=== PATIENT | male | born 1995 | race Two or more races ===

== ENCOUNTER 2021-05-13 21:28 | Emergency (ER) | payer MEDICAID ==
[~2021-05-13] VITALS: Ht 165.1 cm; Wt 52.0 kg
[2021-05-13] MEDS ORDERED: ibuprofen tablet 400 MG TABLET PO ONE (22:55)
[2021-05-13] MEDS ORDERED: ACET-1025 PO (23:10)
[2021-05-13] MEDS ORDERED: BENZ-38 PO (23:10)
[2021-05-13] MEDS ORDERED: ALBU8HFA PO (23:10)
[2021-05-13 23:34] VITALS: BP 117/79
== END 2021-05-13 23:54 | disposition home or self-care (01) ==
LOC: ER 21:29 → EDBD 21:29 → ER 23:54
DX: B34.9 Viral infection, unspecified (principal); Z20.822 Contact with and (suspected) exposure to COVID-19; R05.9 Cough, unspecified; Z79.899 Other long term (current) drug therapy
CPT/HCPCS: 71045; 87502; 87503; 87635; 99284; C9803

== ENCOUNTER 2023-02-23 18:04 | Emergency (ER) | payer MEDICAID ==
[~2023-02-23] VITALS: Ht 162.6 cm; Wt 48.4 kg
[2023-02-23] MEDS ORDERED: acetaminophen 325mg tablet PO ONE (19:40)
[2023-02-23] MEDS ORDERED: proCHLORperazine 10 MG/2 ml inj IV ONE (20:25)
[2023-02-23] MEDS ORDERED: normal saline 1000ml 1,000 ML IV ONE (20:25)
[2023-02-23] MEDS ORDERED: SUMAtriptan succ. 6 MG/0.5ml vial SQ ONE (20:25)
[2023-02-23] MEDS ORDERED: ketorolac trometh. 30mg/ml inj. IV ONE (20:25)
[2023-02-23] MEDS ORDERED: metoclopramide 5 mg/ml inj IV ONE (21:35)
[2023-02-23] MEDS ORDERED: haloperidol lactate 5mg/ml inj IM ONE (21:35)
[2023-02-23] MEDS ORDERED: magnesium 2GM in 50ml NS 50 ML IV ONE (21:35)
[2023-02-23 22:37] VITALS: TEMP 98.9
[2023-02-23 23:15] LABS: BASOPHILS % (AUTO) 0.2 % (0-1); EOSINOPHILS % (AUTO) 0.1 % (0-6); HEMATOCRIT 42.7 % (42.0-52.0); HEMOGLOBIN 14.1 g/dl (14.0-17.9); LYMPHOCYTES # (AUTO) 0.8 X10'3 (1.1-4.8); MEAN CORPUSCULAR HEMOGLOBIN 25.7 PG (27.0-31.0); MEAN CORPUSCULAR HGB CONC 33.1 g/dL (33.0-36.5); MEAN CORPUSCULAR VOLUME 77.6 FL (78-98); MONOCYTES # (AUTO) 0.4 X10'3 (0-0.9); MONOCYTES % (AUTO) 3.8 % (2-12); NEUTROPHILS # (AUTO) 8.8 X10'3 (1.8-7.7); NEUTROPHILS % (AUTO) 87.9 % (42-75); PLATELET COUNT 232 X10'3 (140-440); RED BLOOD COUNT 5.51 X10'6 (4.70-6.10); RED CELL DISTRIBUTION WIDTH 13.5 % (11.5-14.5)
[2023-02-23 23:25] LABS: ALANINE AMINOTRANSFERASE 19 U/L (12-78); ALBUMIN 4.1 G/DL (3.4-5.0); ALBUMIN/GLOBULIN RATIO 1.2 (1.1-1.5); ALKALINE PHOSPHATASE 67 IU/L (46-116); ANION GAP 13 (8-16); ASPARTATE AMINO TRANSFERASE 23 U/L (10-37); BILIRUBIN,TOTAL 2.2 MG/DL (0.1-1.0); BLOOD UREA NITROGEN 10 MG/DL (7-18); CALCIUM 8.8 MG/DL (8.5-10.1); CHLORIDE 103 MMOL/L (99-107); CREATININE 0.77 MG/DL (0.60-1.10); GLUCOSE 117 MG/DL (70-104); POTASSIUM 3.9 MMOL/L (3.5-5.1); SODIUM 137 MMOL/L (135-145); TOTAL CARBON DIOXIDE 21.4 MMOL/L (24-32); TOTAL PROTEIN 7.6 G/DL (6.4-8.2); eCRCL 98 ML/MIN; eGFR > 90 ML/MIN
[2023-02-24 00:03] VITALS: BP 117/89; PULSE 70; RESP 16; O2SAT 100
== END 2023-02-24 00:04 | disposition home or self-care (01) ==
LOC: ER 18:06
DX: G43.909 Migraine, unspecified, not intractable, without status migrainosus (principal)
CPT/HCPCS: 36415; 70450; 80053; 84145; 85025; 96361; 96365; 96372; 96375; 99285; J0780; J1630; J1885; J2765; J3030; J3475; J7030

== ENCOUNTER 2023-03-20 15:42 | Emergency (ER) | payer MEDICAID ==
[~2023-03-20] VITALS: Ht 165.1 cm; Wt 50.2 kg
--- NOTE | 2023-03-20 16:10 | NUR ---
PT SEEN HERE 3 WEEKS AGO FOR MIGRAINE. PT STATES " I FEEL LUMB AROUND MY NIPPLE NOW" PT STATES IT IS PAINFUL TO TOUCH.
[2023-03-20 17:09] VITALS: BP 112/78; PULSE 85; RESP 18; TEMP 98.3; O2SAT 100
--- NOTE | 2023-03-20 18:59 | NUR ---
I AGREE WITH THE ASSESSMENT PER Lisbeth OROZCO LVN
== END 2023-03-20 17:14 | disposition home or self-care (01) ==
LOC: ER 15:43
DX: N63.20 Unspecified lump in the left breast, unspecified quadrant (principal)
CPT/HCPCS: 99281